=== PATIENT | female | born 2000 | race Hispanic/Latino ===

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

== ENCOUNTER 2020-02-08 23:31 | Emergency (ER) | payer BC ==
--- OUTSIDE RECORDS SUMMARY | 2020-02-08 23:55 | XMS REPORT | Continuity of Care Document ---
:2000 Author Organization [facility] t Address [address] [place] [address] Care Team Providers Name Role Phone Unavailable Unavailable Unavailable Problems This patient has no known problems. Allergies, Adverse Reactions, Alerts This patient has no known allergies or adverse reactions. Medications This patient has no known medications. Procedures This patient has no known procedures. Results This patient has no known results.
[2020-02-09] MEDS ORDERED: ACETAMINOPHEN 500 MG TAB ONE (00:32)
[2020-02-09 00:43] LABS: Urine Blood TRACE (NEG); Urine Glucose NEGATIVE (NEG); Urine Protein TRACE (NEG); Urine Specific Gravity >1.030 (1.005-1.030)
[2020-02-09] MEDS ORDERED: PEN G BENZ LA 1.2MU/2ML SYRINGE IM ONE (01:35)
--- NOTE | 2020-02-09 01:35 | ER ---
Nurse's Notes [facility] Name: Olena Sevilla Age: 19 yrs Sex: Female : 2000 Arrival Date: 02/08/2020 Time: 23:35 Bed 18 Private MD: Pauline Romero Diagnosis: Streptococcal pharyngitis Presentation: 02/07 23:42 Risk Assessment: Do you want to hurt yourself or someone else? Patient reports no ls4 desire to harm self or others. 23:42 Chief complaint: Patient states: I have back pain, and body aches, reports feeling sg chills but not "having the right thermometer at home", reports unsure of temperature, pt states having a headache and feeling hot. Coronavirus screen: Proceed with normal triage. Ebola Screen: Patient negative for fever greater than or equal to 101.5 degrees Fahrenheit, and additional compatible Ebola Virus Disease symptoms Patient denies exposure to infectious person. Patient denies travel to an Ebola-affected area in the 21 days before illness onset. No symptoms or risks identified at this time. Initial Sepsis Screen: Does the patient meet any 2 criteria? HR > 90 bpm. Does the patient have a suspected source of infection? Yes: Dysuria/Frequency/Urgency/UTI. Onset of symptoms was February 08, 2020. Care prior to arrival: None. 23:42 Method Of Arrival: Ambulatory sg 23:42 Acuity: TOPHER 3 sg Triage Assessment: 23:43 Neuro: Level of Consciousness is awake, alert, obeys commands, Oriented to person, ls4 place, time, situation, Paperhanger are equal bilaterally Moves all extremities. Full function Gait is steady, Speech is normal, Facial symmetry appears normal, Pupils are PERRLA, Intact. Respiratory: Airway is patent Respiratory effort is even, unlabored. 23:43 General: Appears in no apparent distress. uncomfortable, Behavior is calm, cooperative. ls4 23:43 Headache History: The patient has had previous headaches and this one is similar to ls4 previous episodes. Pain: Pain currently is 5 out of 10 on a pain scale. Pain began gradually, 1 day ago. Also complains of no other associated symptoms. EENT: Throat is reddened has patchy exudate has enlarged tonsils on left. Cardiovascular: No deficits noted. Respiratory: Denies cough, shortness of breath labored breathing, pain with respiration, pain with cough, pain with movement, air hunger. GI: Abdomen is non-distended, Bowel sounds present X 4 quads. Abd is soft and non tender X 4 quads. : No deficits noted. No signs and/or symptoms were reported regarding the genitourinary system. Urine is clear. Derm: Skin is intact, is healthy with good turgor, Skin is dry, Skin is normal, Skin temperature is warm. Musculoskeletal: No deficits noted. No signs and/or symptoms reported regarding the musculoskeletal system. 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 - Social history:: Smoking status: Patient denies any tobacco usage or history of. Screenin:41 Abuse screen: Denies threats or abuse. Denies injuries from another. Nutritional ls4 screening: No deficits noted. Tuberculosis screening: No symptoms or risk factors identified. Fall Risk None identified. Assessment: 02/08 00:50 Reassessment: Patient appears in no apparent distress at this time. Patient and/or ls4 family updated on plan of care and expected duration. Pain level reassessed. Patient is alert, oriented x 3, equal unlabored respirations, skin warm/dry/pink. Patient states symptoms have improved. 01:40 Reassessment: Patient appears in no apparent distress at this time. Patient is alert, rr5 oriented x 3, equal unlabored respirations, skin warm/dry/pink. discharge instruction given and explained without complaints made. 01:52 Reassessment: Patient appears in no apparent distress at this time. Patient is alert, rr5 oriented x 3, equal unlabored respirations, skin warm/dry/pink. discharge instruction given and explained without complaints made. Vital Signs: 02/07 23:43 BP 132 / 72; Pulse 97; Resp 18; Temp 99.9; Pulse Ox 100% on R/A; Weight 70.31 kg (R); sg Pain 02/08; 02/08 01:36 BP 121 / 62; Pulse 89; Resp 19; Temp 98.5; Pulse Ox 99% ; rr5 ED Course: 02/07 23:35 Patient arrived in ED. 23:36 Pauline Romero MD is Private Physician. 23:40 Cherri Newberry, RN is Primary Nurse. ls4 23:41 No apparent distress. ls4 23:41 Patient has correct armband on for positive identification. Bed in low position. Call ls4 light in reach. Side rails up X 1. Pulse ox on. NIBP on. Verbal reassurance given. 23:41 No provider procedures requiring assistance completed. ls4 23:44 Syed Estrada MD is Attending Physician. [facility] 23:45 Triage completed. 02/08 01:00 Arm band placed on. rr5 01:41 Patient did not have IV access during this emergency room visit. rr5 Administered Medications: 00:25 Drug: Tylenol 1000 mg Route: PO; ls4 00:40 Follow up: Response: No adverse reaction; Marked relief of symptoms ls4 01:35 Drug: Bicillin L-A 1.2 million units Route: IM; Site: right gluteus; rr5 01:53 Follow up: Response: No adverse reaction rr5 Outcome: 01:34 Discharge ordered by . 7 01:53 Discharged to home ambulatory. rr5 01:53 Condition: stable 01:53 Discharge instructions given to patient, Instructed on discharge instructions, follow up and referral plans. Demonstrated understanding of instructions, follow-up care. 01:54 Patient left the ED. rr5 Signatures: Joss Dooley RN RN Jennifer Denise Cherri Newberry RN RN 4 Ken Saavedra RN RN rr5 Syed Estrada MD MD [facility]
--- NOTE | 2020-02-09 01:35 | EDPHYS ---
Physician Documentation [facility] Name: Olena Sevilla Age: 19 yrs Sex: Female : 2000 Arrival Date: 02/08/2020 Time: 23:35 Bed 18 Private MD: Pauline Romero ED Physician Syed Estrada HPI: 02/07 23:56 This 19 yrs old Female presents to ER via Ambulatory with complaints of Sore mh7 Throat, Back Pain, Headache. 23:56 The patient presents with sore throat. The patient describes throat pain as constant. mh7 Onset: The symptoms/episode began/occurred this morning. Severity of symptoms: At their worst the symptoms were moderate, earlier today, in the emergency department the symptoms have improved, moderately. 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 Associated signs and symptoms: Pertinent positives: headache, Sore throat lower back pain, bodyaches, Pertinent negatives chest pain, chills, cough, diarrhea, dysphagia, earache, fever, nausea, rhinorrhea, shortness of breath, vomiting. 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 - Social history:: Smoking status: Patient denies any tobacco usage or history of. ROS: 23:56 Constitutional: Negative for fever, chills, and weight loss, Eyes: Negative for injury, mh7 pain, redness, and discharge, Neck: Negative for injury, pain, and swelling, Cardiovascular: Negative for chest pain, palpitations, and edema, Respiratory: Negative for shortness of breath, cough, wheezing, and pleuritic chest pain, Abdomen/GI: Negative for abdominal pain, nausea, vomiting, diarrhea, and constipation, : Negative for injury, bleeding, discharge, and swelling, MS/Extremity: Negative for injury and deformity, Skin: Negative for injury, rash, and discoloration, Psych: Negative for depression, anxiety, suicide ideation, homicidal ideation, and hallucinations, Allergy/Immunology: Negative for hives, rash, and allergies, Endocrine: Negative for neck swelling, polydipsia, polyuria, polyphagia, and marked weight changes, Hematologic/Lymphatic: Negative for swollen nodes, abnormal bleeding, and unusual bruising. Exam: 23:56 Constitutional: This is a well developed, well nourished patient who is awake, alert, mh7 and in no acute distress. Head/Face: Normocephalic, atraumatic. Eyes: Pupils equal round and reactive to light, extra-ocular motions intact. Lids and lashes normal. Conjunctiva and sclera are non-icteric and not injected. Cornea within normal limits. Periorbital areas with no swelling, redness, or edema. 23:56 Neck: Trachea midline, no thyromegaly or masses palpated, and no cervical lymphadenopathy. Supple, full range of motion without nuchal rigidity, or vertebral point tenderness. No Meningismus. Chest/axilla: Normal chest wall appearance and motion. Nontender with no deformity. No lesions are appreciated. Cardiovascular: Regular rate and rhythm with a normal S1 and S2. No gallops, murmurs, or rubs. Normal PMI, no JVD. No pulse deficits. Respiratory: Lungs have equal breath sounds bilaterally, clear to auscultation and percussion. No rales, rhonchi or wheezes noted. No increased work of breathing, no retractions or nasal flaring. Abdomen/GI: Soft, non-tender, with normal bowel sounds. No distension or tympany. No guarding or rebound. No evidence of tenderness throughout. Back: No spinal tenderness. No costovertebral tenderness. Full range of motion. Skin: Warm, dry with normal turgor. Normal color with no rashes, no lesions, and no evidence of cellulitis. MS/ Extremity: Pulses equal, no cyanosis. Neurovascular intact. Full, normal range of motion. Neuro: Awake and alert, GCS 15, oriented to person, place, time, and situation. Cranial nerves II-XII grossly intact. Motor strength 5/5 in all extremities. Sensory grossly intact. Cerebellar exam normal. Normal gait. Psych: Awake, alert, with orientation to person, place and time. Behavior, mood, and affect are within normal limits. 02/08 01:26 ENT: External ear(s): are unremarkable, Nose: is normal, Mouth: is normal, Posterior 7 pharynx: Tonsils: bilaterally enlarged, with erythema, with exudate, Uvula: normal, Dental exam: normal, Voice: is normal. Vital Signs: 02/07 23:43 BP 132 / 72; Pulse 97; Resp 18; Temp 99.9; Pulse Ox 100% on R/A; Weight 70.31 kg (R); sg Pain 10; 02/08 01:36 BP 121 / 62; Pulse 89; Resp 19; Temp 98.5; Pulse Ox 99% ; rr5 MDM: 00:02 Patient medically screened. [facility] 01:27 Differential diagnosis: laryngitis, mononucleosis, pharyngitis, tonsillitis, uvulitis. 7 Data reviewed: vital signs, nurses notes, lab test result(s), urinalysis. Data interpreted: Pulse oximetry: on room air is 100 %. Interpretation: normal. Counseling: I had a detailed discussion with the patient and/or guardian regarding: the historical points, exam findings, and any diagnostic results supporting the discharge/admit diagnosis, lab results, the need for outpatient follow up, to return to the emergency department if symptoms worsen or persist or if there are any questions or concerns that arise at home. Response to treatment: the patient's symptoms have markedly improved after treatment. 02/07 23:52 Order name: Rapid Strep; Complete Time: 01: 7 02/07 23:52 Order name: Influenza Screen (a \T\ B); Complete Time: : [facility] 02/08 00:05 Order name: Urine Dipstick--Ancillary (enter results); Complete Time: 00:49 2 02/08 00:05 Order name: Urine --Ancillary (enter results); Complete Time: 00:49 [facility] 02/07 23:52 Order name: Urine Dipstick-Ancillary (obtain specimen); Complete Time: : 7 02/07 23:52 Order name: Urine Test (obtain specimen); Complete Time: 00:23 7 Administered Medications: 00:25 Drug: Tylenol 1000 mg Route: PO; ls4 00:40 Follow up: Response: No adverse reaction; Marked relief of symptoms ls4 01:35 Drug: Bicillin L-A 1.2 million units Route: IM; Site: right gluteus; rr5 01:53 Follow up: Response: No adverse reaction rr5 Disposition: 02/09/20 01:34 Discharged to Home. Impression: Streptococcal pharyngitis. - Condition is Stable. - Discharge Instructions: Strep Throat, [id number]. - Work release form, Medication Reconciliation Form, Thank You Letter, Antibiotic Education, Prescription Opioid Use form. - Follow up: Private Physician; When: 1 - 2 days; Reason: Worsening of condition, Recheck today's complaints, Re-evaluation by your physician. - Problem is new. - Symptoms have improved. Signatures: Dispatcher [employer] EDMS Joss Dooley RN RN sg Cherri Newberry RN RN 4 Ken Saavedra RN RN rr5 ySed Estrada MD MD mh7 Corrections: (The following items were deleted from the chart) 01:54 01:34 02/09/2020 01:34 Discharged to Home. Impression: Streptococcal pharyngitis. rr5 Condition is Stable. Forms are Medication Reconciliation Form, Thank You Letter, Antibiotic Education, Prescription Opioid Use. Follow up: Private Physician; When: 1 - 2 days; Reason: Worsening of condition, Recheck today's complaints, Re-evaluation by your physician. Problem is new. Symptoms have improved. mh7
[2020-02-09 02:12] VITALS: BP 121/62; TEMP 98.5; O2SAT 99
== END 2020-02-09 01:54 | disposition home or self-care (01) ==
LOC: ER 23:31
DX: J02.0 Streptococcal pharyngitis (principal)
CPT/HCPCS: 81025; 87081; 81003; 87804 ×2; 96372; 99283; J0561

== ENCOUNTER 2020-08-06 09:48 | Emergency (ER) | payer BC ==
--- OUTSIDE RECORDS SUMMARY | 2020-08-06 09:51 | XMS REPORT | Continuity of Care Document ---
:[address] [facility] Address [address] [place] [address] [place] [id number] Care Team Providers Name Role Phone Unavailable Unavailable Unavailable Problems This patient has no known problems. Allergies, Adverse Reactions, Alerts This patient has no known allergies or adverse reactions. Medications This patient has no known medications. Procedures This patient has no known procedures. Results This patient has no known results.
[2020-08-06] MEDS ORDERED: MAGNESIUM CITRATE 300 ML BOT ONE (10:51)
[2020-08-06] MEDS ORDERED: BISACODYL 10 MG RECTAL SUPP ONE (10:51)
--- NOTE | 2020-08-06 11:33 | ER ---
Nurse's Notes [facility] Name: Olena Sevilla Age: 20 yrs Sex: Female : 2000 Arrival Date: 08/06/2020 Time: 09:51 Bed 13 Private MD: Diagnosis: Constipation Presentation: 08/06 10:04 Chief complaint: Patient states: Constipation. Pt reports last BM was 2-3 days ago. ss Coronavirus screen: Client denies travel out of the [place] in the last 14 days. Ebola Screen: Patient denies exposure to infectious person. Patient denies travel to an Ebola-affected area in the 21 days before illness onset. Initial Sepsis Screen: Does the patient meet any 2 criteria? No. Patient's initial sepsis screen is negative. Does the patient have a suspected source of infection? No. Patient's initial sepsis screen is negative. Risk Assessment: Do you want to hurt yourself or someone else? Patient reports no desire to harm self or others. Onset of symptoms was August 03, 2020. 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 - Social history:: Smoking status: Patient denies any tobacco usage or history of. Screenin:45 Abuse screen: Denies threats or abuse. Denies injuries from another. Nutritional ec1 screening: No deficits noted. Tuberculosis screening: No symptoms or risk factors identified. Fall Risk None identified. Assessment: 10:45 General: Appears in no apparent distress. uncomfortable, Behavior is calm, cooperative. ec1 Pain: Complains of pain in rectum, lower abdomen Pain currently is 4 out of 10 on a pain scale. Neuro: Level of Consciousness is awake, alert, obeys commands. Cardiovascular: Patient's skin is warm and dry. Respiratory: Respiratory effort is even, unlabored. GI: Abdomen is flat, Bowel sounds present X 4 quads. hyperactive in right upper quadrant, left upper quadrant, right lower quadrant and left lower quadrant Abd is soft X 4 quads Abdomen is tender to palpation in right lower quadrant and left lower quadrant Reports lower abdominal pain, constipation, last bm 2 days ago, small amount. : No signs and/or symptoms were reported regarding the genitourinary system. EENT: No signs and/or symptoms were reported regarding the EENT system. Derm: No signs and/or symptoms reported regarding the dermatologic system. Musculoskeletal: No signs and/or symptoms reported regarding the musculoskeletal system. Vital Signs: 10:04 BP 131 / 87; Pulse 81; Resp 14; Temp 98.6(TE); Pulse Ox 97% on R/A; Weight 54.43 kg; ss Height 5 ft. 1 in. (154.94 cm); Pain 4/10; 11:42 BP 125 / 86; Pulse 71; Resp 16 S; Pulse Ox 100% on R/A; ec1 10:04 Body Mass Index 22.67 (54.43 kg, 154.94 cm) ED Course: 09:51 Patient arrived in ED. as 10:06 Triage completed. ss 10:06 Arm band placed on right wrist. ss 10:08 Mame Genao, VANESSA is Primary Nurse. ec1 10:08 Marc Dempsey NP is PHCP. pm1 10:08 Bob Loo MD is Attending Physician. pm1 10:45 Placed in gown. Bed in low position. Adult w/ patient. ec1 11:42 No provider procedures requiring assistance completed. Patient did not have IV access ec1 during this emergency room visit. Administered Medications: 10:48 Drug: Dulcolax Suppository 10 mg Route: SC; ec1 11:43 Follow up: Response: No adverse reaction ec1 10:48 Drug: Magnesium Citrate Liquid 300 ml Route: PO; ec1 11:43 Follow up: Response: No adverse reaction ec1 11:41 Not Given (other interventions used): Fleet Enema 133 ml SC once; may repeat once ec1 Outcome: 11:33 Discharge ordered by . pm1 11:42 Discharged to home ambulatory, with friend. ec1 11:42 Condition: good 11:42 Discharge instructions given to patient, Instructed on discharge instructions, follow up and referral plans. Demonstrated understanding of instructions, follow-up care, medications, Prescriptions given X 1. 11:43 Patient left the ED. ec1 Signatures: Sophia Galeano Shelby, RN RN ss Marc Dempsey, DEPUTY DIRECTOR OF FINANCE DEPUTY DIRECTOR OF FINANCE pm1 Chadwick, Mame, RN RN ec1
--- NOTE | 2020-08-06 11:33 | EDPHYS ---
Physician Documentation [facility] Name: Olena Sevilla Age: 20 yrs Sex: Female : 2000 Arrival Date: 08/06/2020 Time: 09:51 Bed 13 Private MD: ED Physician Bob Loo HPI: 08/06 10:15 This 20 yrs old Female presents to ER via Ambulatory with complaints of pm1 Constipation, Abdominal Pain. 10:15 The patient presents with constipation. Onset: The symptoms/episode began/occurred 3 pm1 day(s) ago. Associated signs and symptoms: Pertinent negatives: nausea, vomiting, and diarrhea, chest pain, dysuria, fever, shortness of breath. The symptoms are described as crampy. Modifying factors: The symptoms are alleviated by nothing, has not tried any over the counter medications. the symptoms are aggravated by nothing. Severity of pain: in the emergency department the pain is actually worse. The patient has experienced similar episodes in the past, a few times. The patient has not recently seen a physician. 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 - Social history:: Smoking status: Patient denies any tobacco usage or history of. ROS: 10:15 Constitutional: Negative for fever, chills, and weight loss, Cardiovascular: Negative pm1 for chest pain, palpitations, and edema, Respiratory: Negative for shortness of breath, cough, wheezing, and pleuritic chest pain. 10:15 Back: Negative for injury and pain, : Negative for injury, bleeding, discharge, and swelling, MS/Extremity: Negative for injury and deformity, Skin: Negative for injury, rash, and discoloration, Neuro: Negative for headache, weakness, numbness, tingling, and seizure. 10:15 Abdomen/GI: Positive for abdominal pain, constipation, Negative for nausea, vomiting, and diarrhea. Exam: 10:15 Constitutional: This is a well developed, well nourished patient who is awake, alert, pm1 and in no acute distress. Head/Face: Normocephalic, atraumatic. 10:15 Back: No spinal tenderness. No costovertebral tenderness. Full range of motion. 10:15 Skin: Warm, dry with normal turgor. Normal color with no rashes, no lesions, and no evidence of cellulitis. MS/ Extremity: Pulses equal, no cyanosis. Neurovascular intact. Full, normal range of motion. 10:15 Cardiovascular: Exam negative for acute changes, Rate: normal, Rhythm: regular, Pulses: no pulse deficits are appreciated, Edema: is not appreciated. 10:15 Respiratory: Exam negative for acute changes, respiratory distress, shortness of breath. 10:15 Abdomen/GI: Exam negative for acute changes, Inspection: abdomen appears normal, Palpation: abdomen is soft and non-tender, in all quadrants. 10:15 Neuro: Exam negative for acute changes, Orientation: is normal, Mentation: is normal, Motor: is normal, moves all fours. Vital Signs: 10:04 BP 131 / 87; Pulse 81; Resp 14; Temp 98.6(TE); Pulse Ox 97% on R/A; Weight 54.43 kg; ss Height 5 ft. 1 in. (154.94 cm); Pain 4/10; 11:42 BP 125 / 86; Pulse 71; Resp 16 S; Pulse Ox 100% on R/A; ec1 10:04 Body Mass Index 22.67 (54.43 kg, 154.94 cm) ss MDM: 10:15 Patient medically screened. pm1 10:15 Refusal of service: The patient/guardian displays adequate decision making capability pm1 and despite a detailed discussion of alternatives, benefits, risks, and consequences refuses: all X-rays, Patient just wants medications to resolve her constipation. 11:21 Data reviewed: vital signs. Data interpreted: Pulse oximetry: on room air is 97 %. pm1 Interpretation: normal. 11:32 Counseling: I had a detailed discussion with the patient and/or guardian regarding: the pm1 historical points, exam findings, and any diagnostic results supporting the discharge/admit diagnosis, the need for outpatient follow up, to return to the emergency department if symptoms worsen or persist or if there are any questions or concerns that arise at home, improved dietary. 11:32 ED course: Patient positive for BM in the ER. pm1 Administered Medications: 10:48 Drug: Dulcolax Suppository 10 mg Route: NC; ec1 11:43 Follow up: Response: No adverse reaction ec1 10:48 Drug: Magnesium Citrate Liquid 300 ml Route: PO; ec1 11:43 Follow up: Response: No adverse reaction ec1 11:41 Not Given (other interventions used): Fleet Enema 133 ml NC once; may repeat once ec1 Disposition: 14:34 Co-signature as Attending Physician, Bob Loo MD. rn Disposition: 08/06/20 11:33 Discharged to Home. Impression: Constipation. - Condition is Stable. - Discharge Instructions: Constipation, Adult. - Prescriptions for Miralax 17 gram/dose Oral - take 1 packet by ORAL route once daily As needed dilute powder in 8 ounces of water or juice; 7 packet. - Medication Reconciliation Form, Thank You Letter, Antibiotic Education, Prescription Opioid Use form. - Follow up: Emergency Department; When: As needed; Reason: Worsening of condition. Follow up: Private Physician; When: 2 - 3 days; Reason: Recheck today's complaints, Continuance of care, Re-evaluation by your physician. - Problem is new. - Symptoms have improved. Signatures: Bob Loo MD MD rn Smirch, Shelby, RN RN ss Marc Dempsey, GUEST SERVICE AIDE GUEST SERVICE AIDE pm1 Mame Genao RN RN ec1 Corrections: (The following items were deleted from the chart) 11:43 11:33 08/06/2020 11:33 Discharged to Home. Impression: Constipation. Condition is ec1 Stable. Forms are Medication Reconciliation Form, Thank You Letter, Antibiotic Education, Prescription Opioid Use. Follow up: Emergency Department; When: As needed; Reason: Worsening of condition. Follow up: Private Physician; When: 2 - 3 days; Reason: Recheck today's complaints, Continuance of care, Re-evaluation by your physician. Problem is new. Symptoms have improved. pm1
[2020-08-10 08:33] VITALS: TEMP 98.6
[2020-08-10 08:35] VITALS: BP 125/86; O2SAT 100
== END 2020-08-06 11:43 | disposition home or self-care (01) ==
LOC: ER 09:48
DX: K59.00 Constipation, unspecified (principal)
CPT/HCPCS: 99283

== ENCOUNTER 2024-01-05 21:35 | Emergency (ER) | payer OTHER, SELFPAY ==
--- OUTSIDE RECORDS SUMMARY | 2024-01-05 21:40 | XMS REPORT | Continuity of Care Document ---
Author Name Unknown Address [address] [facility] [place] [address] [facility] thconnect Address [address] [facility] [address] [place] [address] Care Team Providers Care Picker Tender Name Role Phone EMILY RIBEIRO Primary Care Physician Unavailab mejia GC_GCBZW_Karenéea_S Attending Clinician Unavaila shawna Ebrahidoris SENIOR PROJECT COORDINATORGladys Sanchez Attending Clinician [phone] Kalpesh ESQUIVEL, Crystal Attending Clinician [phone] GLADYS MARIA Attending Clinician Unavailable Riddhi Alex RN Attending Clinician Unavaila CINDY Higgins Attending Clinician Unavailable Only, Ang Db Test Attending Clinician Unavailtaylor Recio SENIOR PROJECT COORDINATORCindy Attending Clinician [phone] Doctor Unassigned, [place] Attending Clinician U Emily Gage Attending Clinician [phone] Lab, Adc Fam Pob I Attending Clinician Unavailab EMILY Grullon Attending Clinician Unavailable JAN SHEEHAN Attending Clinician Unavaila ble GC_GCBZW_Kadiyala_S Admitting Clinician Unavaila ble Payers Payer Name Policy Type Policy Number Effective Date Expirati on Date Source [employer] (EPO) [id number] 2022 00:00:00 [facility] [id number] 2017 00:00:00 2019 00:00:00 Problems Condition Name Condition Details Condition Category Status Onset Date Resolution Date Last Treatment Date Treating Clinician Comments Source No known active problems No known active problems Disease [facility] Allergies, Adverse Reactions, Alerts Allergy Name Allergy Type Status Severity Reaction(s) Onset Date Inactive Date Treating Clinician Comments Source NO KNOWN ALLERGIE S Drug Class Active [facility] Social History Social Habit Start Date Stop Date Quantity Comments Source Exposure to SARS-CoV-2 (event) 2022-03-02 00:00:00 2022-03-12 18:36:00 Not sure [facility] Tobacco use and exposure 2018-05-13 00:00:00 2018-05-13 00:00:00 Smokeless tobacco non-user [facility] Sex Assigned At 2000 00:00:00 2000 00:00:00 [facility] Smoking Status Start Date Stop Date Source Never smoked tobacco [facility] Medications Ordered Medication Name Filled Medication Name Start Date Stop Date Current Medication? Ordering Clinician Indication Dosage Frequency Signature (SIG) Comments Components Source naproxen 500 mg tablet 10-26 19:30: 52 Yes 500mg Take 500 mg by mouth 2 (two) times daily with meals. [facility] naproxen 500 mg tablet 10-26 13:30: 52 Yes 500mg Take 500 mg by mouth 2 (two) times daily with meals. [facility] Vital Signs Vital Name Observation Time Observation Value Comments S qamar Body weight 2022-03-12 23:39:00 57.199 kg [facility] BMI 2022-03-12 23:39:00 23.83 kg/m2 [facility] Oxygen saturation in Arterial blood by Pulse oximetry 2022-03-12 23:39:00 100 /min [facility] Systolic blood pressure 2022-03-12 23:39:00 128 mm[Hg] [facility] Diastolic blood pressure 2022-03-12 23:39:00 84 mm[Hg] [facility] Heart rate 2022-03-12 23:39:00 59 /min [facility] Body temperature 2022-03-12 23:39:00 36.94 Eboni [facility] Respiratory rate 2022-03-12 23:39:00 18 /min [facility] Body height 2022-03-12 23:39:00 154.9 cm [facility] Systolic blood pressure 2020-10-26 19:29:00 120 mm[Hg] [facility] Diastolic blood pressure 2020-10-26 19:29:00 81 mm[Hg] [facility] Heart rate 2020-10-26 19:29:00 61 /min [facility] Body temperature 2020-10-26 19:29:00 36.94 Eboni [facility] Body height 2020-10-26 19:29:00 154.9 cm [facility] Body weight 2020-10-26 19:29:00 51.71 kg [facility] BMI 2020-10-26 19:29:00 21.54 kg/m2 [facility] Procedures Procedure Date / Time Performed Performing Clinicia n Source CONSENT/REFUSAL FOR DIAGNOSIS AND TREATMENT 2022-02-28 15:44:06 Doctor Unassigned, [place] [facility] COMP. METABOLIC PANEL ([id number]) 2020-10-26 20:41:00 Emily Ribeiro [facility] CBC WITH DIFF 2020-10-26 20:41:00 Emily Ribeiro [facility] FLU VACC ([id number]), 6+ MONTHS, IM, QUAD 2020-10-26 20:03:06 Emily Ribeiro [facility] Encounters Start Date/Time End Date/Time Encounter Type Admission Type Attending Clinicians Care Facility Care Department Encounter ID Source 2023-09-08 00:00:00 2023-09-08 00:00:00 Outpatient GC_GCBZW_Ka diyala_S PRIV PRIV [id number] [facility] 2023-09-04 00:00:00 2023-09-04 00:00:00 Outpatient GC_GCBZW_Ka diyala_S PRIV PRIV [id number] [facility] 2023-08-28 00:00:00 2023-08-28 00:00:00 Outpatient GC_GCBZW_Ka diyala_S PRIV PRIV [id number] [facility] 2023-06-28 00:00:00 2023-06-28 00:00:00 Outpatient GC_GCBZW_Ka diyala_S PRIV PRIV [id number] [facility] 2023-06-28 00:00:00 2023-06-28 00:00:00 Outpatient GC_GCBZW_Ka diyala_S PRIV PRIV [id number] [facility] 2022-03-12 19:00:00 2022-03-12 19:20:00 Urgent Care Gladys Maria Amanda [facility] [id number] 350.1.13.10 4.2.7.2.686 [id number] [facility] 2022-03-12 19:00:00 2022-03-12 19:00:00 Outpatient R YANASHEILA ZABALAFALLON [facility] [id number] [facility] 2022-03-01 00:00:00 2022-03-01 00:00:00 Telephone Riddhi Alex [facility] 1..840.114 350.1.13.10 4.2.7.2.686 [id number] [facility] 2022-02-28 13:45:00 2022-02-28 13:45:00 Outpatient R [facility] [id number] [facility] 2022-02-28 10:45:00 2022-02-28 11:15:29 Outpatient R KANNAN [facility] [id number] [facility] 2022-02-28 10:45:00 2022-02-28 11:00:00 Laboratory Only Only, Ang Db Test Kannan [facility] 1.2.840.114 350.1.13.10 4.2.7.2.686 [id number] [facility] 2022-02-28 00:00:00 2022-02-28 00:00:00 Orders Only Doctor Unassigned, [place] [facility] 1.840.114 350.1.13.10 4.2.7.2.686 [id number] [facility] 2020-10-31 00:00:00 2020-10-31 00:00:00 [facility] 1.84.114 350.1.13.10 4.2.7.2.686 [id number] [facility] 2020-10-26 14:33:47 2020-10-26 14:53:47 Manager Commission Visit Lab, Adc [facility] Pob I Amberchristopher [facility] 1..114 350.1.13.10 4.2.7.2.686 [id number] [facility] 2020-10-26 13:06:26 2020-10-26 14:14:09 [facility] 1..114 350.1.13.10 4.2.7.2.686 [id number] [facility] 2020-10-26 14:00:00 2020-10-26 14:00:00 Outpatient R EMILY RIBEIRO [facility] [id number] [facility] 2020-09-21 08:00:00 2020-09-21 08:00:00 Outpatient R EMILY RIBEIRO [facility] [id number] [facility] 2020-02-17 10:30:00 2020-02-17 10:30:00 Outpatient R JAN SHEEHAN [facility] [id number] [facility] Results Test Description Test Time Test Comments Results Result Co mments Source RPR REFLEX TO T. PALLIDUM - [id number] 03:20:46* Test Item Value Reference Range Interpretation Comme nts RPR (test code = 79907) NON-REACTIVE NON-REACTIVE RPR TITER (test code = 3500) NOT INDIC. TITER NOT INDIC. HIV 1/2 4TH GEN, RFLX [id number] 03:09:58* Test Item Value Reference Range Interpretation Comme nts HIV 1/2 4TH GEN, RFLX CONF ( test code = 3514) NON-REACTIVE NON-REACTIVE HEPATITIS PANEL, [id number] 03:09:58* Test Item Value Reference Range Interpretation Comme nts HEPATITIS A IgM (test code = 69066) NON-REACTIVE NON-REACTIVE HEPATITIS B CORE IgM (test code = 4644) NON-REACTIVE NON-REACTIVE HEPATITIS B SURF AG (test code = 2739) NON-REACTIVE NON-REACTIVE HEPATITIS C ANTIBODY (test code = 4675) NON-REACTIVE NON-REACTIVE INTERPRETATION HEPATITIS A: (test code = 2552) (NOTE) Hepatitis A serology shows no evidence of acute hepatitis A. INTERPRETATION HEPATITIS B: (test code = 49994) (NOTE) Hepatitis B serology shows no evidence of acute hepatitis B andno indication of exposure to hepatitis B virus in the previous kathleen eight months. INTERPRETATION HEPATITIS C: (test code = 43518) (NOTE) Hepatitis C serology shows no evidence of exposure to hepatitisC virus at this time. It can take up to 12 months after exposure tothe hepatitis C virus for antibodies to become detectable in the blood in certain patients. COMP. METABOLIC PANEL ([id number])2020-10-26 22:46:00* Test Item Value Reference Range Interpretation Comme nts NA (test code = 3891566708) 136 mmol/L 135-145 K (test code = 9325514819) 4.3 mmol/L 3.5-5 CL (test code = 7019844232) 100 mmol/L 98-108 CO2 TOTAL (test code = 2427895733) 26 mmol/L 23-31 AGAP (test code = 5793576874) 2-16 BUN (test code = 5044323059) 14 mg/dL 7-23 GLUCOSE (test code = 8834763981) 79 mg/dL 70-110 CREATININE (test code = 0207183859) 0.60 mg/dL 0.5-1.04 TOTAL BILI (test code = 9611243258) 0.7 mg/dL 0.1-1.1 CALCIUM (test code = 5162192118) 9.1 mg/dL 8.6-10.6 T PROTEIN (test code = 2398020294) 7.3 g/dL 6.3-8.2 ALBUMIN (test code = 8636081320) 4.6 g/dL 3.5-5 ALK PHOS (test code = 0513270424) 61 U/L 34-122 ALTv (test code = 1742-6) 32 U/L 5-35 AST(SGOT) (test code = 0724351399) 30 U/L 13-40 eGFR Calculation (Non-) (test code = 5548754088) mL/min/1.73m2 eGFR Calculation () (test code = 1685933116) mL/min/1.73m2 OUMOU (test code = OUMOU) Association of Glomerular Filtration Rate (GFR) and Staging of Kidney Disease* + -+ + ---+| GFR (mL/min/1.73 m2) ?| With Kidney Damage ?| ?Without Kidney Damage+ -------+ ------+ ---------+| ?>90 ?| ?Stage one ?| ? Normal ?+ --+ -+ ----+| ?60-89 ?| ?Stage two ?| ? Decreased GFR ? + -+ + ---+| ?30-59 ?| ?Stage three ?| ? Stage three ? + -+ + ---+| ?15-29 ?| ?Stage four ? | ? Stage four ?+ --+ -+ ----+| ?<15 (or dialysis) ? ?| ?Stage five ? | ? Stage five ?+ --+ -+ ----+ *Each stage assumes the associated GFR level has been in effect for at least three months. ?Stages 1 to 5, with or without kidney disease, indicate chronic kidney disease. Notes: Determination of stages one and two (with eGFR >59mL/min/1.73 m2) requires estimation of kidney damage for at least three months as defined by structural or functional abnormalities of the kidney, manifested by either:Pathological abnormalities or Markers of kidney damage (including abnormalities in the composition of the blood or urine or abnormalities in imaging tests). [facility]. METABOLIC PANEL ([id number])2020-10-26 22:46:00* Test Item Value Reference Range Interpretation Comme nts NA (test code = 8235188525) 136 mmol/L 135-145 K (test code = 6886987141) 4.3 mmol/L 3.5-5 CL (test code = 0879995234) 100 mmol/L 98-108 CO2 TOTAL (test code = 0683180392) 26 mmol/L 23-31 AGAP (test code = 7892937310) 2-16 BUN (test code = 3489728583) 14 mg/dL 7-23 GLUCOSE (test code = 7649156052) 79 mg/dL 70-110 CREATININE (test code = 0745201382) 0.60 mg/dL 0.5-1.04 TOTAL BILI (test code = 7297190202) 0.7 mg/dL 0.1-1.1 CALCIUM (test code = 7931092303) 9.1 mg/dL 8.6-10.6 T PROTEIN (test code = 4491753819) 7.3 g/dL 6.3-8.2 ALBUMIN (test code = 2336983028) 4.6 g/dL 3.5-5 ALK PHOS (test code = 1540524634) 61 U/L 34-122 ALTv (test code = 1742-6) 32 U/L 5-35 AST(SGOT) (test code = 7032944506) 30 U/L 13-40 eGFR Calculation (Non-) (test code = 0216983344) mL/min/1.73m2 eGFR Calculation () (test code = 6462522712) mL/min/1.73m2 OUMOU (test code = OUMOU) Association of Glomerular Filtration Rate (GFR) and Staging of Kidney Disease* + -+ + ---+| GFR (mL/min/1.73 m2) ?| With Kidney Damage ?| ?Without Kidney Damage+ -------+ ------+ ---------+| ?>90 ?| ?Stage one ?| ? Normal ?+ --+ -+ ----+| ?60-89 ?| ?Stage two ?| ? Decreased GFR ? + -+ + ---+| ?30-59 ?| ?Stage three ?| ? Stage three ? + -+ + ---+| ?15-29 ?| ?Stage four ? | ? Stage four ?+ --+ -+ ----+| ?<15 (or dialysis) ? ?| ?Stage five ? | ? Stage five ?+ --+ -+ ----+ *Each stage assumes the associated GFR level has been in effect for at least three months. ?Stages 1 to 5, with or without kidney disease, indicate chronic kidney disease. Notes: Determination of stages one and two (with eGFR >59mL/min/1.73 m2) requires estimation of kidney damage for at least three months as defined by structural or functional abnormalities of the kidney, manifested by either:Pathological abnormalities or Markers of kidney damage (including abnormalities in the composition of the blood or urine or abnormalities in imaging tests). [facility]. METABOLIC PANEL ([id number])2020-10-26 22:46:00* Test Item Value Reference Range Interpretation Comme nts NA (test code = 9023292862) 136 mmol/L 135-145 K (test code = 9472140119) 4.3 mmol/L 3.5-5 CL (test code = 9416559438) 100 mmol/L 98-108 CO2 TOTAL (test code = 3468328306) 26 mmol/L 23-31 AGAP (test code = 6202019419) 2-16 BUN (test code = 0554063286) 14 mg/dL 7-23 GLUCOSE (test code = 6384183231) 79 mg/dL 70-110 CREATININE (test code = 2057949640) 0.60 mg/dL 0.5-1.04 TOTAL BILI (test code = 5028644466) 0.7 mg/dL 0.1-1.1 CALCIUM (test code = 8261144582) 9.1 mg/dL 8.6-10.6 T PROTEIN (test code = 8040323551) 7.3 g/dL 6.3-8.2 ALBUMIN (test code = 5764597995) 4.6 g/dL 3.5-5 ALK PHOS (test code = 3845170081) 61 U/L 34-122 ALTv (test code = 1742-6) 32 U/L 5-35 AST(SGOT) (test code = 5001250887) 30 U/L 13-40 eGFR Calculation (Non-) (test code = 5404770284) mL/min/1.73m2 eGFR Calculation () (test code = 0610641061) mL/min/1.73m2 OUMOU (test code = OUMOU) Association of Glomerular Filtration Rate (GFR) and Staging of Kidney Disease* + -+ + ---+| GFR (mL/min/1.73 m2) ?| With Kidney Damage ?| ?Without Kidney Damage+ -------+ ------+ ---------+| ?>90 ?| ?Stage one ?| ? Normal ?+ --+ -+ ----+| ?60-89 ?| ?Stage two ?| ? Decreased GFR ? + -+ + ---+| ?30-59 ?| ?Stage three ?| ? Stage three ? + -+ + ---+| ?15-29 ?| ?Stage four ? | ? Stage four ?+ --+ -+ ----+| ?<15 (or dialysis) ? ?| ?Stage five ? | ? Stage five ?+ --+ -+ ----+ *Each stage assumes the associated GFR level has been in effect for at least three months. ?Stages 1 to 5, with or without kidney disease, indicate chronic kidney disease. Notes: Determination of stages one and two (with eGFR >59mL/min/1.73 m2) requires estimation of kidney damage for at least three months as defined by structural or functional abnormalities of the kidney, manifested by either:Pathological abnormalities or Markers of kidney damage (including abnormalities in the composition of the blood or urine or abnormalities in imaging tests). [facility] WITH [id number] 22:40:00* Test Item Value Reference Range Interpretation Comme nts WBC (test code = 6690-2) See_Comment [Automated [employer]] The system which generated this result transmitted reference range: 4.30 - 11.10 10*3/?L. The reference range was not used to interpret this result as normal/abnormal. RBC (test code = 789-8) See_Comment [Automated messa ge] The system which generated this result transmitted reference range: 3.93 - 5.25 10*6/?L. The reference range was not used to interpret this result as normal/abnormal. HGB (test code = 718-7) 13.2 g/dL 11.6-15 HCT (test code = 4544-3) 40.1 % 35.7-45.2 MCV (test code = 787-2) 81.5 fL 80.6-95.5 MCH (test code = 785-6) 26.8 pg 25.9-32.8 MCHC (test code = 786-4) 32.9 g/dL 31.6-35.1 RDW-SD (test code = 40428-9) 37.0 fL 39-49.9 L RDW-CV (test code = 788-0) 12.6 % 12-15.5 PLT (test code = 777-3) See_Comment [Automated [employer] ge] The system which generated this result transmitted reference range: 166 - 358 10*3/?L. The reference range was not used to interpret this result as normal/abnormal. MPV (test code = 36382-8) 9.3 fL 9.5-12.9 L NRBC/100 WBC (test code = 9892466607) See_Comment [Automated [employer] ssage] The system which generated this result transmitted reference range: 0.0 - 10.0 /100 WBCs. The reference range was not used to interpret this result as normal/abnormal. NRBC x10^3 (test code = 2101201807) <0.01 See_Comment [Automated [employer]isk[employer] ge] The system which generated this result transmitted reference range: 10*3/?L. The reference range was not used to interpret this result as normal/abnormal. GRAN MAT (NEUT) % (test code = 770-8) 67.4 % IMM GRAN % (test code = 4797589107) 0.20 % LYMPH % (test code = 736-9) 24.7 % MONO % (test code = 5905-5) 6.3 % EOS % (test code = 713-8) 0.8 % BASO % (test code = 706-2) 0.6 % GRAN MAT x10^3(ANC) (test code = 7320871489) 5.73 10*3/uL 1.88-7.09 IMM GRAN x10^3 (test code = 7837831922) <0.03 0-0.06 LYMPH x10^3 (test code = 731-0) 2.10 10*3/uL 1.32-3.29 MONO x10^3 (test code = 742-7) 0.54 10*3/uL 0.33-0.92 EOS x10^3 (test code = 711-2) 0.07 10*3/uL 0.03-0.39 BASO x10^3 (test code = 704-7) 0.05 10*3/uL 0.01-0.07 Lab Interpretation (test code = 37390-5) Abnormal [facility] WITH [id number] 22:40:00* Test Item Value Reference Range Interpretation Comme nts WBC (test code = 6690-2) See_Comment [Automated [employer] ge] The system which generated this result transmitted reference range: 4.30 - 11.10 10*3/?L. The reference range was not used to interpret this result as normal/abnormal. RBC (test code = 789-8) See_Comment [Automated [employer] ge] The system which generated this result transmitted reference range: 3.93 - 5.25 10*6/?L. The reference range was not used to interpret this result as normal/abnormal. HGB (test code = 718-7) 13.2 g/dL 11.6-15 HCT (test code = 4544-3) 40.1 % 35.7-45.2 MCV (test code = 787-2) 81.5 fL 80.6-95.5 MCH (test code = 785-6) 26.8 pg 25.9-32.8 MCHC (test code = 786-4) 32.9 g/dL 31.6-35.1 RDW-SD (test code = 51562-1) 37.0 fL 39-49.9 L RDW-CV (test code = 788-0) 12.6 % 12-15.5 PLT (test code = 777-3) See_Comment [Automated [employer] ge] The system which generated this result transmitted reference range: 166 - 358 10*3/?L. The reference range was not used to interpret this result as normal/abnormal. MPV (test code = 99377-4) 9.3 fL 9.5-12.9 L NRBC/100 WBC (test code = 1393852459) See_Comment [Automated [employer] ssage] The system which generated this result transmitted reference range: 0.0 - 10.0 /100 WBCs. The reference range was not used to interpret this result as normal/abnormal. NRBC x10^3 (test code = 4334479673) <0.01 See_Comment [Automated messa ge] The system which generated this result transmitted reference range: 10*3/?L. The reference range was not used to interpret this result as normal/abnormal. GRAN MAT (NEUT) % (test code = 770-8) 67.4 % IMM GRAN % (test code = 2848026409) 0.20 % LYMPH % (test code = 736-9) 24.7 % MONO % (test code = 5905-5) 6.3 % EOS % (test code = 713-8) 0.8 % BASO % (test code = 706-2) 0.6 % GRAN MAT x10^3(ANC) (test code = 9366062616) 5.73 10*3/uL 1.88-7.09 IMM GRAN x10^3 (test code = 4454718830) <0.03 0-0.06 LYMPH x10^3 (test code = 731-0) 2.10 10*3/uL 1.32-3.29 MONO x10^3 (test code = 742-7) 0.54 10*3/uL 0.33-0.92 EOS x10^3 (test code = 711-2) 0.07 10*3/uL 0.03-0.39 BASO x10^3 (test code = 704-7) 0.05 10*3/uL 0.01-0.07 Lab Interpretation (test code = 45174-6) Abnormal [facility] WITH [id number] 22:40:00* Test Item Value Reference Range Interpretation Comme nts WBC (test code = 6690-2) See_Comment [Automated messa ge] The system which generated this result transmitted reference range: 4.30 - 11.10 10*3/?L. The reference range was not used to interpret this result as normal/abnormal. RBC (test code = 789-8) See_Comment [Automated messa ge] The system which generated this result transmitted reference range: 3.93 - 5.25 10*6/?L. The reference range was not used to interpret this result as normal/abnormal. HGB (test code = 718-7) 13.2 g/dL 11.6-15 HCT (test code = 4544-3) 40.1 % 35.7-45.2 MCV (test code = 787-2) 81.5 fL 80.6-95.5 MCH (test code = 785-6) 26.8 pg 25.9-32.8 MCHC (test code = 786-4) 32.9 g/dL 31.6-35.1 RDW-SD (test code = 00583-9) 37.0 fL 39-49.9 L RDW-CV (test code = 788-0) 12.6 % 12-15.5 PLT (test code = 777-3) See_Comment [Automated [employer] ge] The system which generated this result transmitted reference range: 166 - 358 10*3/?L. The reference range was not used to interpret this result as normal/abnormal. MPV (test code = 92001-1) 9.3 fL 9.5-12.9 L NRBC/100 WBC (test code = 4339326505) See_Comment [Automated [employer] ssage] The system which generated this result transmitted reference range: 0.0 - 10.0 /100 WBCs. The reference range was not used to interpret this result as normal/abnormal. NRBC x10^3 (test code = 5645125728) <0.01 See_Comment [Automated messa ge] The system which generated this result transmitted reference range: 10*3/?L. The reference range was not used to interpret this result as normal/abnormal. GRAN MAT (NEUT) % (test code = 770-8) 67.4 % IMM GRAN % (test code = 5207458166) 0.20 % LYMPH % (test code = 736-9) 24.7 % MONO % (test code = 5905-5) 6.3 % EOS % (test code = 713-8) 0.8 % BASO % (test code = 706-2) 0.6 % GRAN MAT x10^3(ANC) (test code = 4151379075) 5.73 10*3/uL 1.88-7.09 IMM GRAN x10^3 (test code = 5017131845) <0.03 0-0.06 LYMPH x10^3 (test code = 731-0) 2.10 10*3/uL 1.32-3.29 MONO x10^3 (test code = 742-7) 0.54 10*3/uL 0.33-0.92 EOS x10^3 (test code = 711-2) 0.07 10*3/uL 0.03-0.39 BASO x10^3 (test code = 704-7) 0.05 10*3/uL 0.01-0.07 Lab Interpretation (test code = 42471-0) Abnormal [facility]"
[2024-01-05] MEDS ORDERED: DICYCLOMINE HCL 20 MG/2 ML AMP IM ONE (23:07)
[2024-01-05] MEDS ORDERED: ONDANSETRON 4 MG/2 ML VIAL ONE (23:07)
[2024-01-05] MEDS ORDERED: NA CHLORIDE 0.9% 1,000 ML ONE (23:08)
[2024-01-05] MEDS ORDERED: DIPHENOX/ATROP SULF 1 TAB PO ONE (23:08)
[2024-01-05 23:53] LABS: Absolute Lymphocytes (CBC) 1.1 K/uL (0.7-4.9); Absolute Monocytes 0.6 K/uL (0.1-1.3); Absolute Neutrophil 5.2 K/uL (1.8-8.0); Basophils % 0.2 % (0-1.3); Eosinophils % 0.4 % (0-4.4); Hematocrit 38.9 % (36.0-45.0); Hemoglobin 12.9 g/dL (12.0-15.0); Lymphocytes % 15.5 % (15.3-44.8); MCH 26.9 pg (27.0-35.0); MCHC 33.1 g/dL (32.0-36.0); MCV 81.4 fL (80-100); MPV 7.7 fL (7.6-11.3); Monocytes % 8.6 % (3.3-12.3); Neutrophils % 75.3 % (41.7-73.7); Nucleated Red Blood Cells % 0.1 % (0-0); Platelets 269 thou/uL (152-406); RBC Red Blood Cell Count 4.79 M/uL (3.86-4.86); Red Cell Distribution Width 13.4 % (12.1-15.2); Specific Gravity 1.021 (1.005-1.030); Urine Bilirubin NEGATIVE (Negative); Urine Blood Negative (Negative); Urine Clarity Clear (Clear); Urine Color Light-Yellow (Yellow); Urine Glucose NEGATIVE (Negative); Urine Ketones NEGATIVE (Negative); Urine Microscopic Reflex YN NO UMIC; Urine Nitrite NEGATIVE (Negative); Urine Protein NEGATIVE (Negative); Urine Urobilinogen 1+ (Normal)
[2024-01-06 00:07] LABS: Albumin 3.6 g/dL (3.4-5.0); Albumin/Globulin Ratio 1.1 (1.1-1.8); Anion Gap 6.1 mEq/L (5.0-15.0); Bilirubin Total 0.6 mg/dL (0.2-1.0); Globulin 3.3 g/dL (2.3-3.5); Potassium 3.1 mEq/L (3.5-5.1); Protein, Total 6.9 g/dL (6.4-8.2)
--- NOTE | 2024-01-06 00:45 | ER ---
Nurse's Notes [facility] Name: Olena Sevilla Age: 23 yrs Sex: Female : 2000 Arrival Date: 01/05/2024 Time: 21:35 Bed 5 Private MD: Diagnosis: Acute viral gastroenteritis, acute diarrhea Presentation: 01/04 21:56 Chief complaint: Patient states: n/v/d abdominal pain that started today. Coronavirus as6 screen: At this time, the client does not indicate any symptoms associated with coronavirus-19. Ebola Screen: No symptoms or risks identified at this time. Risk Assessment: Do you want to hurt yourself or someone else? Patient reports no desire to harm self or others. Onset of symptoms was January 05, 2024. 21:56 Method Of Arrival: Ambulatory as6 21:56 Acuity: TOPHER 3 as6 22:01 Initial Sepsis Screen: Does the patient meet any 2 criteria? No. Patient's initial as6 sepsis screen is negative. Does the patient have a suspected source of infection? No. Patient's initial sepsis screen is negative. 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 - Infectious Disease History:: Denies. - Social history:: Smoking status: Patient denies any tobacco usage or history of. - Family history:: not pertinent. Screenin:20 [facility] ED Fall Risk Assessment (Adult) History of falling in the last 3 months, bm8 including since admission No falls in past 3 months (0 pts) Confusion or Disorientation No (0 pts) Intoxicated or Sedated No (0 pts) Impaired Gait No (0 pts) Mobility Assist Device Used No (0 pt) Altered Elimination No (0 pt) Score/Fall Risk Level 0 - 2 = Low Risk Oriented to surroundings, Maintained a safe environment, Educated pt \T\ family on fall prevention, incl call for assistance when getting out of bed. Abuse screen: Denies threats or abuse. Denies injuries from another. Nutritional screening: No deficits noted. Tuberculosis screening: No symptoms or risk factors identified. Assessment: 23:15 Reassessment: Patient appears in no apparent distress at this time. Patient and/or bm8 family updated on plan of care and expected duration. Pain level reassessed. Patient is alert, oriented x 3, equal unlabored respirations, skin warm/dry/pink. General: Appears in no apparent distress. comfortable, Behavior is calm, cooperative, appropriate for age. Pain: Complains of pain in left mid back, right mid back and abdomen. Neuro: Level of Consciousness is awake, alert, obeys commands, Oriented to person, place, time, situation. Cardiovascular: Denies chest pain, Capillary refill < 3 seconds Patient's skin is warm and dry. Respiratory: Airway is patent Trachea midline Respiratory effort is even, unlabored, Respiratory pattern is regular, symmetrical. GI: Abdomen is flat, non-distended, Bowel sounds present X 4 quads. Abdomen is tender to palpation X 4 quads. : No deficits noted. No signs and/or symptoms were reported regarding the genitourinary system. Musculoskeletal: Reports pain in back. 01/05 00:11 Reassessment: Patient appears in no apparent distress at this time. No changes from bm8 previously documented assessment. Patient and/or family updated on plan of care and expected duration. Pain level reassessed. Patient is alert, oriented x 3, equal unlabored respirations, skin warm/dry/pink. Vital Signs: 01/04 22:00 BP 137 / 102; Pulse 96; Resp 18 S; Temp 99.3(O); Pulse Ox 98% on R/A; Weight 64.86 kg as6 (R); Height 5 ft. 1 in. (R); Pain 7/10; 22:42 BP 128 / 85 RA Sitting (auto/reg); Pulse 97 MON; Resp 18 S; Temp 98.7(O); Pulse Ox 100% ty on R/A; Weight 64.86 kg (R); Height 5 ft. 1 in. (R); Pain 7/10; 23:20 BP 123 / 71; Pulse 81; Resp 17; Temp 98.7; Pulse Ox 99% on R/A; Pain 7/10; bm8 01/05 00:10 BP 116 / 79; Pulse 79; Resp 16; Pulse Ox 100% on R/A; km8 00:54 BP 122 / 77; Pulse 86; Resp 16; Pulse Ox 100% on R/A; km8 01/04 22:42 Body Mass Index 27.02 (64.86 kg, 154.94 cm) ty 01/04 22:00 Pain Scale: Adult as6 22:42 Pain Scale: Adult ty 23:20 Pain Scale: Adult bm8 [place] Coma Score: 01/04 23:15 Eye Response: spontaneous(4). Motor Response: obeys commands(6). Verbal Response: bm8 oriented(5). Total: 15. 01/05 00:47 Eye Response: spontaneous(4). Motor Response: obeys commands(6). Verbal Response: sp4 oriented(5). Total: 15. ED Course: 01/04 21:38 Patient arrived in ED. mr 21:38 Enio Purvis MD is Attending Physician. sp4 21:57 Triage completed. as6 21:57 Arm band placed on. as6 23:05 Arvin Beard, RN is Primary Nurse. bm8 23:20 Patient has correct armband on for positive identification. Placed in gown. Bed in low bm8 position. Call light in reach. Side rails up X 1. Adult w/ patient. Client placed on continuous cardiac and pulse oximetry monitoring. NIBP monitoring applied. Pulse ox on. NIBP on. Door closed. Noise minimized. Visitors limited. Warm blanket given. Verbal reassurance given. Head of bed lowered. 23:20 No provider procedures requiring assistance completed. Inserted saline lock: 22 gauge bm8 in left forearm, using aseptic technique. Blood collected. 01/05 00:44 Reynold Harris DO is Referral Physician. sp4 00:55 Provided Education on: d/c teaching. km8 00:55 IV discontinued, intact, bleeding controlled, No redness/swelling at site. Pressure km8 dressing applied. Administered Medications: 01/04 23:15 Drug: NS 0.9% IV 1000 ml IV at 1 bolus Per protocol; 1000 mL bolus Route: IV; Rate: 1 bm8 bolus; Site: left forearm; 01/05 00:05 Follow up: Response: No adverse reaction; IV Status: Completed infusion; IV Intake: bm8 1000ml 01/04 23:15 Drug: Ondansetron IVP 4 mg IVP once; over 2 minutes Route: IVP; Site: left forearm; bm8 01/05 00:05 Follow up: Response: No adverse reaction bm8 01/04 23:15 Drug: Diphenoxylate-Atropine PO 2 tabs PO once Route: PO; bm8 01/05 00:04 Follow up: Response: No adverse reaction 8 01/04 23:15 Drug: Dicyclomine IM 20 mg IM once Route: IM; Site: right deltoid; bm8 01/05 00:04 Follow up: Response: No adverse reaction bm8 00:54 Drug: Potassium Chloride PO 40 mEq PO once Route: PO; km8 00:54 Follow up: Response: Medication administered at discharge. km8 00:54 Drug: Promethazine PO 25 mg PO once Route: PO; km8 00:54 Follow up: Response: Medication administered at discharge. km8 Medication: 01/04 23:15 VIS not applicable for this client. bm8 Intake: 01/05 00:05 IV: 1000ml; Total: 1000ml. bm8 Outcome: 00:44 Discharge ordered by . sp4 00:55 Discharged to home ambulatory, km8 00:55 Condition: good 00:55 Discharge instructions given to patient, Instructed on discharge instructions, follow up and referral plans. medication usage, Demonstrated understanding of instructions, follow-up care, medications, Prescriptions given X 3, 00:55 Patient left the ED. km8 Signatures: Susan Chase Reg Reg mr Keenan Joe, RN RN as6 Enio Purvis MD MD sp4 Gina Holt RN RN km8 Gregory Kee Brad RN RN bm8
--- NOTE | 2024-01-06 00:45 | EDPHYS ---
Physician Documentation [facility] Name: Olena Sevilla Age: 23 yrs Sex: Female : 2000 Arrival Date: 01/05/2024 Time: 21:35 Bed 5 Private MD: ED Physician Enio Purvis HPI: 01/04 21:38 This 23 yrs old Female presents to ER via Unassigned with complaints of sp4 Abdominal Pain, Back Pain, Diarrhea, Nausea. 01/05 00:47 Very pleasant young 23-year-old female presents with acute onset nausea vomiting watery sp4 diarrhea starting yesterday morning.. Associated with diffuse abdominal and back pain.. 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 - Infectious Disease History:: Denies. - Social history:: Smoking status: Patient denies any tobacco usage or history of. - Family history:: not pertinent. ROS: 01/05 00:47 Constitutional: Negative for chills, and weight loss, positive nausea vomiting sp4 diarrhea also reported low-grade fever, positive for diffuse abdominal and back pain All other systems are negative, Exam: 00:47 Constitutional: This is a well developed, well nourished patient who is awake, alert, sp4 and in no acute distress. Head/Face: Normocephalic, atraumatic. Eyes: Pupils equal round and reactive to light, extra-ocular motions intact. Lids and lashes normal. Conjunctiva and sclera are not injected. Cornea within normal limits. Periorbital areas with no swelling, redness, or edema. ENT: Nares patent. No nasal discharge, no septal abnormalities noted. Tympanic membranes are normal and external auditory canals are clear. Oropharynx with no redness, swelling, or masses, exudates, or evidence of obstruction, uvula midline. Mucous membranes moist. Neck: Trachea midline, no thyromegaly or masses palpated, and no cervical lymphadenopathy. Supple, full range of motion without nuchal rigidity, or vertebral point tenderness. Chest/axilla: Normal chest wall appearance and motion. Nontender with no deformity. No lesions are appreciated. Cardiovascular: Regular rate and rhythm with a normal S1 and S2. No gallops, murmurs, or rubs. Normal PMI, no JVD. No pulse deficits. Respiratory: Lungs have equal breath sounds bilaterally, clear to auscultation and percussion. No rales, rhonchi or wheezes noted. No increased work of breathing, no retractions or nasal flaring. Abdomen/GI: Soft, with normal bowel sounds. No distension or tympany. No guarding or rebound. No evidence of tenderness throughout. Back: No spinal tenderness. No costovertebral tenderness. Skin: Warm, dry with normal turgor. Normal color with no rashes, no lesions, and no evidence of cellulitis. MS/ Extremity: Pulses equal, no cyanosis. Neurovascular intact. Full, normal range of motion. Neuro: Awake and alert, GCS 15, oriented to person, place, time, and situation. Cranial nerves II-XII grossly intact. Motor strength 5/5 in all extremities. Sensory grossly intact. Psych: Awake, alert, with orientation to person, place and time. Behavior, mood, and affect are within normal limits Vital Signs: 01/04 22:00 BP 137 / 102; Pulse 96; Resp 18 S; Temp 99.3(O); Pulse Ox 98% on R/A; Weight 64.86 kg as6 (R); Height 5 ft. 1 in. (R); Pain 7/10; 22:42 BP 128 / 85 RA Sitting (auto/reg); Pulse 97 MON; Resp 18 S; Temp 98.7(O); Pulse Ox 100% ty on R/A; Weight 64.86 kg (R); Height 5 ft. 1 in. (R); Pain 7/10; 23:20 BP 123 / 71; Pulse 81; Resp 17; Temp 98.7; Pulse Ox 99% on R/A; Pain 7/10; bm8 07 00:10 BP 116 / 79; Pulse 79; Resp 16; Pulse Ox 100% on R/A; km8 00:54 BP 122 / 77; Pulse 86; Resp 16; Pulse Ox 100% on R/A; km8 01/04 22:42 Body Mass Index 27.02 (64.86 kg, 154.94 cm) ty 01/04 22:00 Pain Scale: Adult as6 22:42 Pain Scale: Adult ty 23:20 Pain Scale: Adult bm8 [place] Coma Score: 01/04 23:15 Eye Response: spontaneous(4). Motor Response: obeys commands(6). Verbal Response: bm8 oriented(5). Total: 15. 01/05 00:47 Eye Response: spontaneous(4). Motor Response: obeys commands(6). Verbal Response: sp4 oriented(5). Total: 15. MDM: 01/04 21:39 Patient medically screened. sp4 01/05 00:50 Differential diagnosis: Cholelithiasis Fatigue Pyelonephritis. Data reviewed: sp4 vital signs, nurses notes, old medical records, lab test result(s). Consideration of Admission/Observation Escalation of care including admission/observation considered. ED course: Presentation and exam suggest acute viral gastroenteritis. Patient stable for discharge home with recommendation to consume clear liquid diet, also as needed Lomotil, as needed Bentyl, as needed ondansetron. 01/04 21:39 Order name: CBC with Diff; Complete Time: 00:38 4 01/04 21:39 Order name: CMP; Complete Time: 00:38 sp4 01/04 21:39 Order name: Lipase; Complete Time: 00:38 sp4 01/04 21:39 Order name: Test, Urine; Complete Time: 00:38 sp4 01/04 21:39 Order name: Urinalysis w/ reflexes; Complete Time: 23:56 sp4 01/04 21:39 Order name: IV Saline Lock; Complete Time: 23:15 4 01/04 21:39 Order name: Labs collected and sent; Complete Time: 23:15 sp4 Administered Medications: 01/04 23:15 Drug: NS 0.9% IV 1000 ml IV at 1 bolus Per protocol; 1000 mL bolus Route: IV; Rate: 1 bm8 bolus; Site: left forearm; 01/05 00:05 Follow up: Response: No adverse reaction; IV Status: Completed infusion; IV Intake: bm8 1000ml 01/04 23:15 Drug: Ondansetron IVP 4 mg IVP once; over 2 minutes Route: IVP; Site: left forearm; 8 01/05 00:05 Follow up: Response: No adverse reaction bm8 01/04 23:15 Drug: Diphenoxylate-Atropine PO 2 tabs PO once Route: PO; 8 01/05 00:04 Follow up: Response: No adverse reaction [facility] 01/04 23:15 Drug: Dicyclomine IM 20 mg IM once Route: IM; Site: right deltoid; 8 01/05 00:04 Follow up: Response: No adverse reaction 00:54 Drug: Potassium Chloride PO 40 mEq PO once Route: PO; 00:54 Follow up: Response: Medication administered at discharge. 00:54 Drug: Promethazine PO 25 mg PO once Route: PO; 00:54 Follow up: Response: Medication administered at discharge. 8 Disposition Summary: 01/06/24 00:44 Discharge Ordered Problem: new sp4 Symptoms: have improved sp4 Condition: Stable sp4 Diagnosis - Acute viral gastroenteritis, acute diarrhea sp4 Followup: sp4 - With: Reynold Harris DO - When: 7 - 10 days - Reason: Recheck today's complaints Discharge Instructions: - Discharge Summary Sheet sp4 - Viral Gastroenteritis, Adult, [id number] sp4 Forms: - Patient Portal Instructions sp4 Prescriptions: - Lomotil 2.5-0.025 mg Oral tablet - take 1 tablet ORAL route every 6 hours As needed; 30 tablet; Refills: 0, sp4 Product Selection Permitted - dicyclomine 20 mg Oral tablet - take 1 tablet ORAL route every 6 hours PRN abdominal pain; 30 tablet; Refills: sp4 0, Product Selection Permitted - ondansetron 8 mg Oral Tablet,disintegrating - take 1 tablet ORAL route every 6 hours PRN nausea; 30 tablet; Refills: 0, sp4 Product Selection Permitted Signatures: Dispatcher [employer] Keenan Moody RN RN as6 Enio Purvis MD MD sp4 Gina Holt RN RN km8 Arvin Beard RN RN bm8
[2024-01-06] MEDS ORDERED: PROMETHAZINE 25 MG TABLET ONE (00:46)
[2024-01-06] MEDS ORDERED: POTASSIUM CL SA 10 MEQ TAB PO ONE (00:46)
[2024-01-06 01:54] VITALS: BP 122/77; TEMP 98.7; O2SAT 100
== END 2024-01-06 00:55 | disposition home or self-care (01) ==
LOC: ER 21:35
DX: A08.4 Viral intestinal infection, unspecified (principal)
CPT/HCPCS: 36415; 80053; 81003; 81025; 83690; 85025; 96361; 96372; 96374; 99284; J0500; J2405; J7030; Q0169